=== PATIENT | female | born 1985 | race Caucasian/White ===

== ENCOUNTER 2021-10-01 09:59 | Emergency (ER) | payer BC, OTHER ==
[~2021-10-01] VITALS: Ht 172.7 cm; Wt 104.3 kg
--- NOTE | ~2021-10-01 | EMS ---
[address] [address] EMS Patient Care Report Name: IRENE PERRY Room #: REG [facility] Isbell#: [id number] Admission: 10/01/21 Attend Phys: Discharge: Date of : 81 Report #: [id number] THIS REPORT FOR: //name// Report Transmitted: 10/01/2021 09:45 EMS Care Summary [place], [place]/[facility] Incident [id number] @ 10/01/2021 09:17 Incident Location [address] [place] [address] Patient IRENE PERRY Female, 36 Years 1985 Patient Address Patient History Fibromyalgia,Depression, Patient Allergies No known allergies, Patient Medications Lyrica, Tramadol, Chief Complaint Daughter reported seizure like activity Disposition Transported No Lights/[place] Reason Convulsions/Seizure Transported To [facility] Narrative seizure for 2 min does not believe she had a pulse according to family woke up about 2 minutes afterwards had been on the phone having a hard time due to a divorce [address] [address] EMS Patient Care Report Name: IRENE PERRY Room #: REG Sukhi#: [id number] Admission: 10/01/21 Attend Phys: Discharge: Date of : 81 Report #: [id number] Called for a seizure. Upon arrival, pt was CLANCY x 3 sitting on the couch in no apparent distress. Pt daughter stated she had seizure like activity lasting approx 2 minutes and then it took her about 2 minutes to wake up. Pt daughter thought her hear may have stopped for like a minute, no CPR was performed. Pt states she is going through a very stressful divorce. Vitals obtained. Pt initially said she would go to the hospital by an ambulance but then changed her mind. Pt walked to the ambulance, sat on the EMS cot and was loaded w/o incident. Vitals obtained. 18g IV and D-stick. Vitals repeated. En route; no significant changes. RR to the ER. Arrived: pt taken to ER #7 and moved to their bed w/o incident. Pt care & report to ER staff. Initial Vitals @09:50P: 119,CO: 6,SpO2: 85, @09:51P: 119,SpO2: 89,[place] Suspected: false @09:29P: 136,R: 18,BP: 154/91,Pain: 0/10,GCS: 15,SpO2: 86,Revised Trauma: 12, @09:48P: 116,R: 16,BP: 133/89,Pain: 0/10,GCS: 15,CO: 7,SpO2: 94,Revised Trauma: 12, @09:46P: 123,R: 16,BP: 126/81,Pain: 0/10,GCS: 15,Glucose: 111,CO: 3,SpO2: 96,Revised Trauma: 12, Assessments @09:26MENTAL:Person Oriented,Place Oriented,Time Oriented,Event Oriented,SKIN:HEENT:LUNG SOUNDS:ABDOMEN:PELVIS//GI:EXTREMITIES:Left Arm: No Abnormalities,Right Arm: No Abnormalities,Left Leg: No Abnormalities,Right Leg: No Abnormalities,PULSE:Radial: 2+ Normal,NEURO:Seizures, Impression Seizures Procedures @09:26 ALS Assessment Response: UnchangedSucceeded @09:44 Stretcher Response: Unchanged @09:46 IV Therapy - Saline Lock 8cc (18 ga) Site: Antecubital-Left Response: UnchangedSucceeded @09:50 3-Lead ECG Response: UnchangedSucceeded Timeline 09:13,Call Received 09:13,Dispatch Notified 09:17,Dispatched 09:17,En Route 09:25,On Scene 09:26,At Patient 09:26,ALS Assessment,Response: UnchangedSucceeded, 09:29,BP: 154/91 M,PULSE: 136,RR: 18 R,SPO2: 86 Ox,ETCO2: ,BG: ,PAIN: 0,GCS: [address] [address] EMS Patient Care Report Name: IRENE PERRY Room #: REG [facility].#: [id number] Admission: 10/01/21 Attend Phys: Discharge: Date of : 81 Report #: [id number] 15, 09:44,Stretcher,Response: Unchanged 09:46,IV Therapy - Saline Lock 8cc 18 ga Site: Antecubital-Left,Response: UnchangedSucceeded, 09:46,BP: 126/81 M,PULSE: 123,RR: 16 R,SPO2: 96 Ox,ETCO2: ,B,PAIN: 0,GCS: 15, 09:48,BP: 133/89 M,PULSE: 116,RR: 16 R,SPO2: 94 Ox,ETCO2: ,BG: ,PAIN: 0,GCS: 15, 09:49,Depart Scene 09:50,3-Lead ECG,Response: UnchangedSucceeded, 09:50,BP: / M,PULSE: 119,RR: R,SPO2: 85 Ox,ETCO2: ,BG: ,PAIN: ,GCS: , 09:51,BP: / M,PULSE: 119,RR: R,SPO2: 89 Ox,ETCO2: ,BG: ,PAIN: ,GCS: , 09:54,At Destination 10:22,Call Closed Disclaimer v1.1 Copyright 2020 [employer] This EMS Care Summary contains data elements from the applicable legal record (which may be displayed differently). It is designed to provide pertinent information for the following purposes: continuity of care, clinical quality, and state data reporting. The complete legal record is available to ED staff and administrators of the receiving hospital in [employer]'s Patient Tracker. All data is provided "as is."
--- NOTE | 2021-10-01 10:13 | EKG ---
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
[2021-10-01 10:18] LABS: ABSOLUTE NEUTROPHILS 4.2 thou/uL (1.4-8.2); BASOPHILS 0.9 % (0.0-2.0); EOSINOPHILS 1.7 % (0.0-3.0); HEMATOCRIT 36.2 % (37.0-47.0); HEMOGLOBIN 11.4 gm/dL (12.0-15.0); LYMPHOCYTES 29.1 % (24.0-44.0); MCH 25.1 pg (26.0-34.0); MCHC 31.5 g/dL (28.0-37.0); MCV 79.8 fL (80.0-100.0); MONOCYTES 6.4 % (1.0-8.0); PLATELET COUNT 295 thou/uL (150-400); POLYS 61.9 % (36.0-66.0); RBC 4.53 mil/uL (4.20-5.00); RDW 17.9 % (10.5-14.5); WBC 6.8 thou/uL (4.0-11.0)
[2021-10-01 10:44] LABS: CALCIUM 8.8 mg/dL (8.5-10.1); CREATININE 1.1 mg/dL (0.6-1.0); POTASSIUM 3.8 mmol/L (3.5-5.1)
[2021-10-01 10:51] LABS: ALBUMIN 3.4 g/dL (3.4-5.0); MAGNESIUM 1.9 mg/dL (1.8-2.4); TOTAL BILIRUBIN 0.2 mg/dL (0.2-1.0); TOTAL PROTEIN 7.6 g/dL (6.4-8.2)
[2021-10-01 10:59] LABS: URINE BILIRUBIN NEGATIVE (Negative); URINE BLOOD NEGATIVE (Negative); URINE CLARITY CLEAR; URINE COLOR YELLOW; URINE GLUCOSE-RANDOM* NEGATIVE (Negative); URINE KETONES NEGATIVE (Negative); URINE LEUKOCYTES-REFLEX NEGATIVE (Negative); URINE NITRITE-REFLEX NEGATIVE (Negative); URINE PROTEIN (DIPSTICK) NEGATIVE (Negative); URINE SPECIFIC GRAVITY >= 1.030 (1.005-1.035); URINE UROBILINOGEN 0.2 E.U./dl (0.2-1.0)
[2021-10-01 11:29] VITALS: BP 140/78
== END 2021-10-01 11:30 | disposition home or self-care (01) ==
LOC: ER 09:59
PROVIDERS: Emergency Medicine
DX: R56.9 Unspecified convulsions (principal); M79.7 Fibromyalgia